=== PATIENT | male | born 1995 | race Caucasian/White ===

== ENCOUNTER 2021-12-14 22:47 | Emergency (ER) | payer OTHER ==
[~2021-12-14] VITALS: Ht 172.7 cm; Wt 79.4 kg
[2021-12-14 23:42] VITALS: BP 111/80
--- NOTE | 2021-12-15 00:29 | NUR ---
SEEN AND EXAMINED BY SUNNY
[2021-12-15 00:35] VITALS: BP 111/80
[2021-12-15] MEDS ORDERED: NAPR-54 PO (01:58)
[2021-12-15] MEDS ORDERED: CIPR500T4 PO (01:58)
--- NOTE | 2021-12-15 02:03 | NUR ---
Patient discharged with v/s stable. Written and verbal after care instructions given and explained, BY DR. THOMAS. Patient verbalized understanding. Ambulatory with steady gait. All questions addressed prior to discharge. Advised to follow up with PMD.
== END 2021-12-15 02:03 | disposition home or self-care (01) ==
LOC: MED 22:47
DX: N45.1 Epididymitis (principal); Z79.899 Other long term (current) drug therapy
CPT/HCPCS: 76870; 99284; Q0092